=== PATIENT | male | born 1955 | race Caucasian/White ===

== ENCOUNTER 2017-10-26 05:56 | Day surgery (SDC) | payer MEDICARE, MEDICAID, SELFPAY ==
--- NOTE | 2017-10-26 06:13 | EKG12_ITS ---
Test Reason : PRE OP Blood Pressure : / mmHG Vent. Rate : 064 BPM Atrial Rate : 064 BPM P-R Int : 146 ms QRS Dur : 084 ms QT Int : 414 ms P-R-T Axes : 058 -09 004 degrees QTc Int : 427 ms Normal sinus rhythm Normal ECG When compared with ECG of 21-DEC-2016 09:22, No significant change was found Confirmed by LISA DOUGLASS, BEBA ([id number]), editorial assistant SRI ALCAZAR ([id number] on 11/02/2017 3:14:28 PM Referred By: Kalpesh Jean Confirmed By:BEBA GONZALEZ MD
[2017-10-26 06:25] VITALS: BP 128/88; PULSE 66; RESP 16; TEMP 36.6; O2SAT 97; BMI 23.8
[2017-10-26 06:53] LABS: Anion Gap 7 (5-15); BUN 12 mg/dL (7-18); Calcium,Total 8.9 mg/dL (8.5-10.1); Chloride 107 mmol/L (98-107); Creatinine, Serum 1.09 mg/dL (0.70-1.30); EST Glomerular Filtration Rate 73 mL/min (>60); Est Glom Filt Rate - Afr Amer 89 mL/min (>60); Estimated Creatinine Clearance 81.45 ml/min; Glucose 90 mg/dL (74-106); Potassium 3.8 mmol/L (3.5-5.1); Sodium Level 141 mmol/L (136-145)
--- NOTE | 2017-10-26 07:58 | LES_PTH ---
[id number]: [facility] [place] U#:[id number] AGE/SX: 62/M ROOM: RE10/26/[address]: Dr. Kalpesh Jean MD : 1955 BED: DIS: 10/26/2017 SPEC #: [id number] RECD: 10/26/17 08:02 STATUS: STELLA CHINO #: [id number] DIXON: 10/26/17 07:[address]: Kalpesh Jean DEPT: SURGICAL PATHOLOGY RECD BY: Adali Martinez ENTERED: 10/26/17 09:36 SP TYPE: Lesion OTHR DR: Out of Town Doctor Tissues: A - Skin of face, NOS B - Skin of external ear, NOS C - Skin of external ear, NOS D - Skin of lip, NOS Procedures: Frozen Section (charge) Frozen Section Add'l ([facility]) Surgery Specimen Level IV Frozen (no charge) HEADER OPERATION: Excision lesion right ear x2, excision lesion left upper lip PRE-OP DIAGNOSIS: Squamous cell carcinoma lower lip; benign neoplasm skin of lip; lesion external ear right; suspicious lesion of face right angle of mandible skin TISSUE SUBMITTED: A ? Nonhealing suspicious lesion right angle of mandible skin, right side of face to lab for FS at 0758, B ? Right postauricular crease, right ear for FS at 0808, C ? Right ear rim lesion for FS at 0808, D ? Lesion left upper lip for FS at 0841 FROZEN SECTION DIAGNOSIS A. Right side of face lesion, angle of mandible, biopsy: Focal squamous atypia, solar elastosis and dermal chronic inflammation. B. Right postauricular crease, skin lesion, biopsy: Verrucous keratosis with moderate atypia, negative for carcinoma. C. Right ear skin lesion, biopsy: Intradermal nevus. D. Lesion of left upper lip, biopsy: Intradermal nevus, solar elastosis. JORDON:mignon 10/26/17 MICROSCOPIC DIAGNOSIS A. Right side of face lesion, angle of mandible, biopsy: Benign keratosis with moderate to severe squamous atypia. Solar elastosis and dermal chronic inflammation. Negative for malignancy. See comment. B. Right postauricular crease, skin lesion, biopsy: Verrucous keratosis with seborrheic keratosis like features and mild to moderate atypia. Negative for carcinoma. C. Right ear skin lesion, biopsy: Intradermal nevus, completely excised in the planes of section examined. Solar elastosis. D. Lesion of left upper lip, biopsy: Intradermal nevus, completely excised in the planes of section examined. Solar elastosis, focal parakeratosis and associated acute inflammation . Special stain for fungi is negative for organisms; matched control is appropriate. JORDON:mignon 10/29/17 COMMENT Please make reference to previous specimen ([id number]) skin lesion of right ear, biopsy with diagnosis of ?complex atypical squamous epithelial lesion with overlying cutaneous horn, completely excised? and lesion of lip, biopsy with diagnosis of ?squamous cell carcinoma in situ, completely excised.? Case has been reviewed in consultation with Dr. Antonio who concurs with the above diagnosis. IDC:AM MICROSCOPIC DESCRIPTION Slides are reviewed. GROSS DESCRIPTION A - Received fresh for frozen section diagnosis labeled with the patient's name is a specimen designated nonhealing suspicious lesion right angle of mandible skin right side of face. The specimen consists of a piece of liz-white skin measuring 1.4 x 0.7 cm and up to 0.4 cm in thickness. The specimen is inked, serially sectioned and submitted entirely for frozen section diagnosis in one cassette. B - Received fresh for frozen section diagnosis labeled with the patient's name is a specimen designated right postauricular crease.? The specimen consists of a piece of liz-white skin measuring 2 x 1.1 cm and up to 0.3 cm in thickness. The specimen is inked, serially sectioned and submitted entirely for frozen section diagnosis in one cassette. C - Received fresh for frozen section diagnosis labeled with the patient's name is a specimen designated right ear rim lesion. The specimen consists of a piece of liz-white skin measuring 1.2 x 0.7 cm and up to 0.3 cm in thickness. The specimen is inked, serially sectioned and submitted entirely for frozen section diagnosis in one cassette. D - Received fresh for frozen section diagnosis labeled with the patient's name is a specimen designated lesion left upper lip. The specimen consists of a piece of liz-white skin measuring 2.7 x 0.7 cm and up to 0.3 cm in thickness. The specimen is inked, serially sectioned and submitted entirely for frozen section diagnosis in two cassettes. / SJ:rg 10/26/17 TC:5 CPT: 38604 x4, 35490 x4, [id number]
[2017-10-26] MEDS: Bacitracin 500 UNITS/GM PACKET (08:50)
--- NOTE | 2017-10-26 09:09 | OP.PCM_ITS ---
Problem List (1) Benign skin lesion of face Status: Acute (2) Benign skin growth of ear Status: Acute (3) Benign neoplasm of skin of lip Status: Acute (4) Cellulitis, face Status: Acute Report of Operation Date of Procedure: 10/26/17 Pre-Operative Diagnosis: Multiple non-healing lesion of face, history of skin cancer Post-Operative Diagnosis: Same Surgery/Procedure Performed:: Excision of lesions of posterior aspect of right ear 2.5x1.0 and 1.0x1.5 cm with Z-plasty closure, excision lesion of right angle of mandible 1.0x0.5 cm, excision of lesions of upper lip 3.5x1.0 cm Description of Surgical Findings:: Josh is a 62-year-old male with a long-standing history of malignant skin lesions and extensive sun exposure history who presents for evaluation of bleeding nonhealing lesions the right posterior aspect of the ear, right angle of the mandible, and enlarging lesions of the left upper lip. 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 The risks, alternatives, potential benefits, and complications were discussed at length and any questions answered to the patient and/or caregiver's satisfaction. Witnessed informed consent was obtained in the office, and the patient and/or caregiver was agreeable to proceed. Procedure went as follows: The patient was identified in the preoperative holding area and brought to the operating room was placed under general anesthesia and intubated. The suspicious skin lesions have been site marked preoperatively and these areas were then injected 1% lidocaine with 100,000 epinephrine for a total of 5 cc. The lesion of the right angle of the mandible was then sharply incised with a scalpel 1.5 x 1.0 cm in size and sent for frozen section evaluation. This was closed deeply with interrupted 3-0 Vicryl sutures followed by a running 5-0 Monocryl to the skin for wound closure. The right ear the skin of the posterior aspect of the ear was examined. There is notching of the helical rim from his previous cancer resection with a firm round pearly growth in close proximity to this area as well as a bleeding raised verrucous type area closer to the postauricular crease. These were then excised in a 2.5 x 1.0 cm and 1.0 x 0.5 cm area. This resulted in 2 circular defects which were then joined and the skin widely undermined to allow closure in a Z-plasty type closure to reduce tension on the skin and deformity of the auricular cartilage. This is accomplished by wide undermining and 3-0 Vicryl subcutaneous sutures followed by interrupted 5-0 Monocryl sutures to the skin. Attention was then turned to the lesion of the left upper lip. There noted to be 2 firm raised lesions in the serpentine incision to encompass both lesions and allow for a single line wound closure was then marked with a marking pen and carried out with a 15 blade scalpel. Using an iris scissor the skin was then dissected free from the subcutaneous tissues and sent for pathologic evaluation. The wound was then cauterized for hemostasis with bipolar cautery and closed deeply with interrupted 3-0 Vicryl sutures followed by interrupted 5- 0 Monocryl to the skin with a total size of 1.0 x 3.5 cm. Pathologic evaluation revealed although these lesions to be benign and as such no further dissection or resection was indicated. The patient was then revived from anesthesia returned to recovery having tolerated the procedure well. Type of Anesthesia:: General Anesthesiologist: Kalpesh Guzman Special Medications: none Specimen's removed: Skin lesions of right ear, right face, and left upper lip Drains: none Estimated Blood Loss (mL): 1 mL Fluids Replaced: 400 mL Grafts/Implants Used: none - Complications none - Admit VTE Documentation VTE Present on Admission: No VTE Mechan Device Prophylaxis: SCD's VTE Pharm Prophylaxis ordered?: No
[2017-10-26 09:17] VITALS: BP 126/80; BP 128/88; PULSE 95; RESP 16; TEMP 36.2; O2SAT 94
--- NOTE | 2017-10-26 09:17 | PCM.DC ---
- Discharge Diagnoses Current Active Problems: Current Active and Chronic Problems Benign skin lesion of face (Acute) Benign skin growth of ear (Acute) Benign neoplasm of skin of lip (Acute) Cellulitis, face (Acute) You will use the following diet at home:: Regular Discharge Activity: Return to Normal Activity, May not drive while taking narcotic pain medications. Call your doctor if your incision/area has: Continuous Slow Oozing, Increased Pain/ Swelling, Increased Redness, Foul Smelling Discharge Call your doctor if you observe: Fever of 101 or Higher, Uncontrolled pain Cleanse incision/area with: Do not get Incision Wet, Keep Dressing Clean & Dry Allergies/Adverse Reactions: Allergies No Known Allergies Allergy (Verified 10/26/17 06:22) Medications to take at Discharge Ibuprofen 600 mg PO DAILY 12/20/16 Lisinopril [Prinivil] 20 mg PO DAILY 12/20/16 Omeprazole 40 mg PO DAILY 12/20/16 Fluticasone 0.05% [Flonase Nasal [place]] 1 spray NASAL DAILY PRN 10/23/17 Primary Care Physician: [facility] ,Out of [Primary Care Provider] - Test Results: Test results from this visit will be discussed in further detail at your follow-up appointment, if applicable. Please Follow Up With: Kalpesh Jean MD When: 2 weeks
[2017-10-26 09:30] VITALS: BP 125/71; BP 128/88; PULSE 89; RESP 16; O2SAT 94
[2017-10-26 09:45] VITALS: BP 112/78; BP 128/88; PULSE 70; RESP 16; O2SAT 92
[2017-10-26 09:49] VITALS: BP 107/80; BP 128/88; PULSE 70; RESP 16; TEMP 36.1; O2SAT 93
[2017-10-26 10:37] VITALS: BP 123/82; BP 128/88; PULSE 76; RESP 18; TEMP 36.2; O2SAT 98
== END 2017-10-26 10:46 | disposition home or self-care (01) ==
LOC: SDC 05:57 → AC 06:03
PROVIDERS: Visit Provider Otolaryngology
PROC: (CPT 11446; principal; 2017-10-26 07:15)
DX: L57.0 Actinic keratosis (principal); L57.8 Other skin changes due to chronic exposure to nonionizing radiation; D23.21 Other benign neoplasm of skin of right ear and external auricular canal; D23.22 Other benign neoplasm of skin of left ear and external auricular canal; R23.4 Changes in skin texture; H93.13 Tinnitus, bilateral; L03.211 Cellulitis of face; I10 Essential (primary) hypertension; K21.9 Gastro-esophageal reflux disease without esophagitis; F17.200 Nicotine dependence, unspecified, uncomplicated; B19.20 Unspecified viral hepatitis C without hepatic coma; Z85.828 Personal history of other malignant neoplasm of skin; Z79.899 Other long term (current) drug therapy
CPT/HCPCS: 00300; 11446; 12053; 14060; 80048; 88305; 88331; 88332; 93005; J7120; J2405

== ENCOUNTER 2020-09-10 09:44 | Day surgery (SDC) | payer MEDICARE, MEDICAID, SELFPAY ==
[2020-09-10] VITALS (11 sets, daily range): BP systolic 108–137; BP diastolic 68–81; PULSE 61–85; RESP 12–16; TEMP 36.1–36.4; O2SAT 92–97; BMI 21.2
--- NOTE | 2020-09-10 | CHO_PTH ---
PATIENT: NELLA DAVIDSON LOC: [facility] [place] U#:[id number] AGE/SX: 65/M ROOM: RE09/10/[address]: Dr. Kalpseh Jean MD : 1955 BED: DIS: 09/10/2020 SPEC #: [id number] RECD: 09/10/20 14:21 STATUS: STELLA LULÚ #: [id number] DIXON: 09/10/20 00:[address]: Kalpesh Jean DEPT: SURGICAL PATHOLOGY RECD BY: Luis Moore Tissues: Soft tissues, NOS Procedures: Surgery Specimen Level IV HEADER OPERATION: Radical mastoidectomy PRE-OP DIAGNOSIS: Cholesteatoma left ear TISSUE SUBMITTED: Cholesteatoma left ear MICROSCOPIC DIAGNOSIS Cholesteatoma left ear, radical mastoidectomy: A piece of fibroadipose tissue, fibroconnective tissue and skeletal muscle tissue with fat necrosis, chronic inflammation and foreign body giant cell reaction. See comment. SJ:mignon 09/13/2020 COMMENT Overlying mucosa shows focal mild chronic inflammation. Clinical correlation and appropriate follow up are necessary. Case has been reviewed in consultation with Dr. Antonio who concurs with the above diagnosis. IDC:AM MICROSCOPIC DESCRIPTION Slides are reviewed. GROSS DESCRIPTION Received in fixative is one container labeled with the patient's name and designated cholesteatoma left ear. The specimen consists of a piece of liz soft tissue measuring 1.5 x 1.5 x 0.7 cm. The specimen is bisected and submitted entirely in one cassette. / JORDON:mignon 09/10/20 TC:5 CPT: 93177
--- NOTE | 2020-09-10 10:18 | EKG12_ITS ---
Test Reason : PREOP Blood Pressure : / mmHG Vent. Rate : 056 BPM Atrial Rate : 056 BPM P-R Int : 154 ms QRS Dur : 086 ms QT Int : 440 ms P-R-T Axes : 064 034 017 degrees QTc Int : 424 ms Sinus bradycardia Low voltage QRS Borderline ECG Confirmed by EFRAIN DOUGLASS, CHINEDU ([id number]), senior technical editor CINDY GARAY ([id number]) on 09/15/2020 10:49:15 AM Referred By: Kalpesh Jean Confirmed By:CHINEDU ZUNIGA MD
[2020-09-10 10:22] LABS: Hematocrit 45.3 % (40-54); Hemoglobin 14.8 g/dL (13.0-16.5); Mean Corp Hgb Conc 32.7 g/dL (32-36); Mean Corpuscular Hgb 30.8 pg (27.0-32.0); Mean Corpuscular Volume 94.4 fL (80-94); Mean Platelet Vol. 8.6 fl (6.2-12.0); Platelet Count 345 K/mm3 (150-450); RBC Distribution Width CV 13.9 % (11.6-14.6); RBC Distribution Width SD 48.9 fl (35.1-43.9); White Blood Count 8.5 K/mm3 (4.4-11.0)
[2020-09-10] MEDS: Lactated Ringers 1,000 ML 100 ML IV (10:24)
[2020-09-10 10:51] LABS: Anion Gap 2 (5-15); BUN 12 mg/dL (7-18); BUN/Creat Ratio 11.4 RATIO (10-20); Calcium,Total 9.3 mg/dL (8.5-10.1); Chloride 105 mmol/L (98-107); Creatinine, Serum 1.05 mg/dL (0.70-1.30); EST Glomerular Filtration Rate 76 mL/min (>60); Est Glom Filt Rate - Afr Amer 92 mL/min (>60); Estimated Creatinine Clearance 74.15 ml/min; Glucose 95 mg/dL (74-106); Potassium 4.2 mmol/L (3.5-5.1); Sodium Level 139 mmol/L (136-145)
[2020-09-10] MEDS: Lidocaine 1% /Epi 1:100 (20ml) 20 ML Vial (11:35)
[2020-09-10] MEDS: Epinephrine (1 mg/ml) 1 MG/ML VIAL (11:40)
[2020-09-10] MEDS: Bacitracin 500 UNITS/GM PACKET (12:58)
--- NOTE | 2020-09-10 13:10 | OP.PCM_ITS ---
Problems Associated Problem List Diagnoses (1) Cholesteatoma of left middle ear: (2) Mixed conductive and sensorineural hearing loss, unilateral, left ear, with unrestricted hearing on the contralateral side: Report of Operation Date of Procedure: 09/10/20 Pre-Operative Diagnosis: Cholesteatoma left middle ear Post-Operative Diagnosis: Same with extensive debris in mastoid Surgery/Procedure Performed:: Left tympanomastoidectomy with ossicular chain reconstruction with Jerad Variac PORP Description of Surgical Findings:: Note is a 65-year-old male well-known to me for his multiple medical issues who presents with persistent drainage from his left ear in the setting of a distant history of mastoidectomy. Examination showed recurrent cholesteatoma within the middle ear cleft with drainage and granulation as well as a significant mixed hearing loss in that left ear and the above procedure was offered in hopes of improvement of this complaint primarily the resolution of his chronic drainage. The risks, alternatives, potential complications, and benefits were discussed at length and any questions answered to the patient and/or caregiver's satisfaction. Witnessed informed consent was obtained in the office, and the patient and/or caregiver was agreeable to proceed. Procedure went as follows: The operative ear had been site marked preoperatively in accordance with the office notes patient exam and history. The patient was then placed under general anesthesia and the left ear prepped and draped in usual sterile fashion. The facial nerve monitoring electrodes wer e then placed in the confirmed to be operational in accordance with the manufacture's directions. The planned postauricular incision site for fascial graft harvest was then injected with 1% lidocaine with 100,000 epinephrine for a total of 5 mL. Through a #6 otic speculum the operative microscope was brought into the field and the external auditory canal and tympanic membrane visualized. The lateral canal wall was then injected with 1% lidocaine with 100,000 epinephrine for a total of 0.5 cc. Using a sickle knife the edge of the cholesteatoma was then sharply resected and withdrawn from the ear canal with a cup forceps. Using a round knife a vascular strip incision was then created and the skin flap developed toward the annulus. The middle ear cleft was then entered with a curved pick and the annulus elevated with the annulus elevator. This was then draped anteriorly to allow visualization of the middle ear cleft which is noted to be healthy in appearance. Epinephrine soaked cotton balls and placed for hemostasis and attention turned to the mastoidectomy. A 6 cm incision was then created a 15 blade scalpel posterior to the auricle at the previous injection site. The skin and subcutaneous tissues were then dissected and the posterior auricular muscle sharply transected. The subfascial plane was then widely developed. Due to his previous surgery dissection was then carried out posteriorly along the temporalis muscle to allow for harvest of fascia and a 2.5 x 3.0 centimeter portion of fascia tissue was then harvested and set aside on a Devyn block for reconstruction of the tympanic membrane. Attention was then turned to the mastoidectomy. Using monopolar cautery a T- shaped incision was then made first along the temporal line and then extending an inferior limb toward the mastoid tip. The periosteum was then elevated posteriorly and superiorly to allow visualization of the mastoid bone. There is a large area of dehiscence consistent with his prior mastoidectomy. The periosteal elevation was then developed anteriorly to join the previously made ear canal incisions and the vascular strip everted and placed within self- retaining retractors which were then used to hold the area open. The soft tissue within the mastoid cavity was then bluntly dissected free were extensive granulation tissue and cholesteatoma matrix was encountered. This was then r emoved and set aside a specimen. Beginning with a #6 cutting bur a revision of his mastoidectomy was then carried out widely saucerizing the mastoid cavity where chronic inflammatory cholesterin debris and inflamed mucosa was encountered. Zachery's septum was noted to be intact owing to the incomplete nature of his previous mastoid surgery. The dissection was then carried out along the canal wall and superiorly to join the attic where additional cholesteatoma was encountered. Using a #4 jason dissection was then carried out to the facial nerve which was identified and preserved along its length. The ossicles were noted to be continuous with the stapes and the tensor tympani was then sharply transected and the malleus and incus removed along with the cholesteatoma sac from the attic as well as the chronically inflamed mastoid mucosa. A canal wall was then taken down to join the ear canal with the mastoid cavity. The dissection was then carried out along the facial recess and the chorda tympani having been involved in the chronic inflammation and cholesteatoma sac was then sacrificed and the facial ridge taken down along the facial nerve and a smooth mastoid cavity then developed. The stapes was found to be intact with absence of the other ossicles. Using the facial nerve stimulator the facial nerve was stimulated confirming both this location and function upon completion of the dissection and during the expiration. Attention was then turned to reconstruction of the ossicular chain and tympanic membrane. A Jerad prosthesis was then fashioned 3 mm in length and placed over the stapes capitulum. The middle ear cleft was then filled with Gelfoam packing material after removal of the epinephrine soaked cotton balls. The previously harvested graft tissue was then placed in an underlay fashion ensuring that it completely covered the tympanic membrane remnant anteriorly and then draped over the facial ridge. The tympanic membrane remnant was densely scarred and thickened and this was felt to be sufficient to prevent extrusion of the prosthesis and no cartilage interposition graft was placed. Additional Gelfoam material applied laterally to hold the composite tissue graft in place. Bacitracin ointment was then applied to secure the material. The postauricular incision then closed with interrupted 3-0 Vicryl sutures followed by a running 5-0 Monocryl suture to the skin. A meatoplasty had been performed with his previous surgery and this was not additionally modified. An Ambrus ear pack was then placed to secure the meatoplasty opening. The patient then cleaned of prep solution and the facial nerve monitoring electrodes removed. The patient was then returned to anesthesia, revived and extubated without complication having tolerated the procedure well. Surgeon: Kalpesh Jean Type of Anesthesia: General Special Medications: none Specimen's removed: cholesteatoma Drains: none Estimated Blood Loss (mL): 50 mL Fluids Replaced: 1600 mL Grafts/Implants Used: Jerad Variac prosthesis Complications none Admit VTE Documentation VTE Present on Admission: No VTE Mechan Device Prophylaxis: SCD's VTE Pharm Prophylaxis ordered?: No
--- NOTE | 2020-09-10 13:24 | PCM.DC ---
Discharge Instructions Diet Discharge Diet: No restrictions Activity Discharge Activity: Return to Normal Activity Dressing / Incision Call your doctor if your incision/area has: Sudden Increased Bleeding, Increased Pain/ Swelling, Foul Smelling Discharge and Swelling at the incision site Call your doctor if you observe: Fever of 101 or Higher and Uncontrolled pain Cleanse incision/area with: Keep Dressing Clean & Dry Follow Up Care Please Follow Up With: Kalpesh Jean MD When: 1 week Test Results: Test results from this visit will be discussed in further detail at your follow-up appointment, if applicable. Discharge Plan Admission Primary Reason for Your Visit: Choleasteatoma left ear Attending Provider: Kalpesh Jean Discharge Orders/Prescriptions Prescriptions: New acetaminophen 500 mg Tablet 500 mg PO Q4H PRN PRN (Reason: Pain Score 1-5/10) Qty: 0 RF: 0 ibuprofen 200 mg Tablet 400 mg PO Q6H PRN PRN (Reason: Pain Score 4-10/10) Qty: 0 RF: 0 Continued omeprazole 40 MG capsule,delayed release(DR/EC) 40 mg PO DAILY RF: 0 ibuprofen 200 MG tablet 600 mg PO PRN PRN (Reason: Pain) RF: 0 acetaminophen [Tylenol] 325 MG tablet 650 mg PO Q4H PRN PRN (Reason: Mild-Moderate Pain (1-5/10)) RF: 0 atorvastatin 80 mg tablet 80 mg PO QHS RF: 0 lisinopril-hydrochlorothiazide 20-12.5 mg tablet 1 tab PO DAILY RF: 0 ciprofloxacin-dexamethasone [Ciprodex] 0.3-0.1 % drops,suspension 4 drp LEFT EAR BID RF: 0 duloxetine 60 mg capsule,delayed release(DR/EC) 60 mg PO DAILY RF: 0 Referrals / Follow Up: [facility] [Other] Disposition Disposition (needs filled in before D/C Order can be placed): Home, Self Care
[2020-09-10] MEDS: Ibuprofen 200 MG Tablet 400 MG PO (15:27)
== END 2020-09-10 16:22 | disposition home or self-care (01) ==
LOC: SDC 09:52 → AC 10:47
PROVIDERS: Referring Provider Otolaryngology; Visit Provider Otolaryngology
PROC: (CPT 69641; principal; 2020-09-10 10:30)
DX: H71.92 Unspecified cholesteatoma, left ear (principal); H90.72 Mixed conductive and sensorineural hearing loss, unilateral, left ear, with unrestricted hearing on the contralateral side; I10 Essential (primary) hypertension; K21.9 Gastro-esophageal reflux disease without esophagitis; Z79.899 Other long term (current) drug therapy
CPT/HCPCS: 00120; 69646; 80048; 85027; 88304; 88305; 93005; J7120; J2405